=== PATIENT | female | born 1960 | race Caucasian/White ===

== ENCOUNTER → 2017-08-31 | Outpatient (CLI) | payer OTHER ==
--- NOTE | 2017-08-31 17:37 | WOMENS IMAGING REPORT ---
EXAM DESCRIPTION: BILAT DIAGNOSTIC MAMMO W/CAD; U/S BREAST UNILAT LIMITED COMPLETED DATE/TIME: 08/31/2017 8:31 am; 08/31/2017 9:44 am REASON FOR STUDY: MASTODYNIA; N64.4; LEFT BREAST N64.4; RT. BREAST N63.12 N64.4 MASTODYNIA N64.9 D ISORDER OF BREAST, UNSPECIFIED N63.12 UNSPECIFIED LUMP IN THE RIGHT BREAST, UPPER INNER ADAM COMPARISON: Multiple since 2010 TECHNIQUE: Standard craniocaudal and mediolateral oblique views of each breast recorded using digita l acquisition. Bilateral 90 mediolateral view whole breast images. Bilateral cone compression in the CC and MLO or ientations in the area of breast pain high in the 12 o'clock positions bilaterally. Bilateral breast ultrasound was performed in the area of breast pain. LIMITATIONS: None. FINDINGS: RIGHT BREAST MASSES: No suspicious masses. CALCIFICATIONS: No new or suspicious calcifications. ARCHITECTURAL DISTORTION: None. DEVELOPING DENSITY: None. ASYMMETRY: None noted. OTHER: No other significant findings. LEFT BREAST MASSES: No suspicious masses. CALCIFICATIONS: No new or suspicious calcifications. ARCHITECTURAL DISTORTION: None. DEVELOPING DENSITY: None. ASYMMETRY: None noted. OTHER: No other significant finding. Read with the assistance of CAD: .[facility] - R2 Cenova Version 1.3 .[facility] Imaging - R2 Cenova Version 1.3 .[facility] Imaging - R2 Cenova Version 2.4 .[facility] [place] - R2 Cenova Version 2.4 .[facility] - R2 Yarn Bleaching Machine Operator Version 9.2 Bilateral breast ultrasound: Ultrasound in the area of patient's pain was performed along the right and left breast 12 o'clock pos ition. No discrete cystic or solid lesions. No worrisome acoustic absorption. No focal findings. IMPRESSION: No mammographic or sonographic evidence for malignancy bilaterally BREAST DENSITY: b. There are scattered areas of fibroglandular density. BIRAD: 1 Negative. RECOMMENDATION: RECOMMENDED FOLLOW UP: Please continue yearly bilateral screening mammography in Aug. Consider bilateral screening tomosynthesis SPECIFIC INTERVENTION/IMAGING/CONSULTATION RECOMMENDED:No additional intervention/ imaging/consultati on needed at this time. COMMUNICATION:Patient notified by letter COMMENT: The patient has been notified of the results by letter per MQSA requirements. Additional no tification policies are in place for contacting patient with suspicious or incomplete findings. Quality ID #[id number]: The [employer] recommends an annual screening mammogram for women aged 40 years or over. This facility utilizes a reminder system to ensure that all patients receive reminder letters, and/or direct phone calls for appointments. This includes reminders for routine scr eening mammograms, diagnostic mammograms, or other Breast Imaging Interventions when appropriate. Th is patient will be placed in the appropriate reminder system. The [employer] (ACR) has developed recommendations for screening MRI of the breast s in certain patient populations, to be used in conjunction with mammography. Breast MRI surveillanc e may be appropriate for women with more than 20% lifetime risk of developing breast cancer as deter mined by genetic testing, significant family history of the disease, or history of mantle radiation f or Hodgkins Disease. ACR Practice Guidelines 2008. TECHNICAL DOCUMENTATION: FINDING NUMBER: (1) ASSESSMENT: (1) JOB ID: [id number] [employer]- All Rights Reserved
--- NOTE | 2017-08-31 17:37 | WOMENS IMAGING REPORT ---
EXAM DESCRIPTION: BILAT DIAGNOSTIC MAMMO W/CAD; U/S BREAST UNILAT LIMITED COMPLETED DATE/TIME: 08/31/2017 8:31 am; 08/31/2017 9:44 am REASON FOR STUDY: MASTODYNIA; N64.4; LEFT BREAST N64.4; RT. BREAST N63.12 N64.4 MASTODYNIA N64.9 D ISORDER OF BREAST, UNSPECIFIED N63.12 UNSPECIFIED LUMP IN THE RIGHT BREAST, UPPER INNER ADAM COMPARISON: Multiple since 2010 TECHNIQUE: Standard craniocaudal and mediolateral oblique views of each breast recorded using digita l acquisition. Bilateral 90 mediolateral view whole breast images. Bilateral cone compression in the CC and MLO or ientations in the area of breast pain high in the 12 o'clock positions bilaterally. Bilateral breast ultrasound was performed in the area of breast pain. LIMITATIONS: None. FINDINGS: RIGHT BREAST MASSES: No suspicious masses. CALCIFICATIONS: No new or suspicious calcifications. ARCHITECTURAL DISTORTION: None. DEVELOPING DENSITY: None. ASYMMETRY: None noted. OTHER: No other significant findings. LEFT BREAST MASSES: No suspicious masses. CALCIFICATIONS: No new or suspicious calcifications. ARCHITECTURAL DISTORTION: None. DEVELOPING DENSITY: None. ASYMMETRY: None noted. OTHER: No other significant finding. Read with the assistance of CAD: .[facility] - R2 Cenova Version 1.3 .[facility] Imaging - R2 Cenova Version 1.3 .[facility] Imaging - R2 Cenova Version 2.4 .[facility] [place] - R2 Cenova Version 2.4 .[facility] - R2 Marine Habitat Resource Specialist Version 9.2 Bilateral breast ultrasound: Ultrasound in the area of patient's pain was performed along the right and left breast 12 o'clock pos ition. No discrete cystic or solid lesions. No worrisome acoustic absorption. No focal findings. IMPRESSION: No mammographic or sonographic evidence for malignancy bilaterally BREAST DENSITY: b. There are scattered areas of fibroglandular density. BIRAD: 1 Negative. RECOMMENDATION: RECOMMENDED FOLLOW UP: Please continue yearly bilateral screening mammography in Aug. Consider bilateral screening tomosynthesis SPECIFIC INTERVENTION/IMAGING/CONSULTATION RECOMMENDED:No additional intervention/ imaging/consultati on needed at this time. COMMUNICATION:Patient notified by letter COMMENT: The patient has been notified of the results by letter per MQSA requirements. Additional no tification policies are in place for contacting patient with suspicious or incomplete findings. Quality ID #[id number]: The [employer] recommends an annual screening mammogram for women aged 40 years or over. This facility utilizes a reminder system to ensure that all patients receive reminder letters, and/or direct phone calls for appointments. This includes reminders for routine scr eening mammograms, diagnostic mammograms, or other Breast Imaging Interventions when appropriate. Th is patient will be placed in the appropriate reminder system. The [employer] (ACR) has developed recommendations for screening MRI of the breast s in certain patient populations, to be used in conjunction with mammography. Breast MRI surveillanc e may be appropriate for women with more than 20% lifetime risk of developing breast cancer as deter mined by genetic testing, significant family history of the disease, or history of mantle radiation f or Hodgkins Disease. ACR Practice Guidelines 2008. TECHNICAL DOCUMENTATION: FINDING NUMBER: (1) ASSESSMENT: (1) JOB ID: [id number] [employer]- All Rights Reserved
--- NOTE | 2017-08-31 17:37 | WOMENS IMAGING REPORT ---
EXAM DESCRIPTION: BILAT DIAGNOSTIC MAMMO W/CAD; U/S BREAST UNILAT LIMITED COMPLETED DATE/TIME: 08/31/2017 8:31 am; 08/31/2017 9:44 am REASON FOR STUDY: MASTODYNIA; N64.4; LEFT BREAST N64.4; RT. BREAST N63.12 N64.4 MASTODYNIA N64.9 D ISORDER OF BREAST, UNSPECIFIED N63.12 UNSPECIFIED LUMP IN THE RIGHT BREAST, UPPER INNER ADAM COMPARISON: Multiple since 2010 TECHNIQUE: Standard craniocaudal and mediolateral oblique views of each breast recorded using digita l acquisition. Bilateral 90 mediolateral view whole breast images. Bilateral cone compression in the CC and MLO or ientations in the area of breast pain high in the 12 o'clock positions bilaterally. Bilateral breast ultrasound was performed in the area of breast pain. LIMITATIONS: None. FINDINGS: RIGHT BREAST MASSES: No suspicious masses. CALCIFICATIONS: No new or suspicious calcifications. ARCHITECTURAL DISTORTION: None. DEVELOPING DENSITY: None. ASYMMETRY: None noted. OTHER: No other significant findings. LEFT BREAST MASSES: No suspicious masses. CALCIFICATIONS: No new or suspicious calcifications. ARCHITECTURAL DISTORTION: None. DEVELOPING DENSITY: None. ASYMMETRY: None noted. OTHER: No other significant finding. Read with the assistance of CAD: .[facility] - R2 Cenova Version 1.3 .[facility] - R2 Cenova Version 1.3 .[facility] Imaging - R2 Cenova Version 2.4 .[facility] [place] - R2 Cenova Version 2.4 .[facility] - R2 Inspector Subassemblies Version 9.2 Bilateral breast ultrasound: Ultrasound in the area of patient's pain was performed along the right and left breast 12 o'clock pos ition. No discrete cystic or solid lesions. No worrisome acoustic absorption. No focal findings. IMPRESSION: No mammographic or sonographic evidence for malignancy bilaterally BREAST DENSITY: b. There are scattered areas of fibroglandular density. BIRAD: 1 Negative. RECOMMENDATION: RECOMMENDED FOLLOW UP: Please continue yearly bilateral screening mammography in Aug. Consider bilateral screening tomosynthesis SPECIFIC INTERVENTION/IMAGING/CONSULTATION RECOMMENDED:No additional intervention/ imaging/consultati on needed at this time. COMMUNICATION:Patient notified by letter COMMENT: The patient has been notified of the results by letter per MQSA requirements. Additional no tification policies are in place for contacting patient with suspicious or incomplete findings. Quality ID #[id number]: The [employer] recommends an annual screening mammogram for women aged 40 years or over. This facility utilizes a reminder system to ensure that all patients receive reminder letters, and/or direct phone calls for appointments. This includes reminders for routine scr eening mammograms, diagnostic mammograms, or other Breast Imaging Interventions when appropriate. Th is patient will be placed in the appropriate reminder system. The [employer] (ACR) has developed recommendations for screening MRI of the breast s in certain patient populations, to be used in conjunction with mammography. Breast MRI surveillanc e may be appropriate for women with more than 20% lifetime risk of developing breast cancer as deter mined by genetic testing, significant family history of the disease, or history of mantle radiation f or Hodgkins Disease. ACR Practice Guidelines 2008. TECHNICAL DOCUMENTATION: FINDING NUMBER: (1) ASSESSMENT: (1) JOB ID: [id number] [employer]- All Rights Reserved
== END ==
LOC: WI 07:51
PROVIDERS: ATTEND Internal Medicine Hematology & Oncology
DX: N63.12 Unspecified lump in the right breast, upper inner quadrant (principal); N64.4 Mastodynia; N64.9 Disorder of breast, unspecified
CPT/HCPCS: 76642; 77066

== ENCOUNTER → 2018-09-25 | Outpatient (CLI) | payer OTHER ==
--- NOTE | 2018-09-25 16:59 | WOMENS IMAGING REPORT ---
EXAM DESCRIPTION: 3D SCREENING MAMMO BILAT COMPLETED DATE/TIME: 09/25/2018 11:29 am REASON FOR STUDY: ROUTINE BILATERAL SCREENING;Z12.31 Z12.31 ENCNTR SCREEN MAMMOGRAM FOR MALIGNANT N EOPLASM OF YARITZA COMPARISON: Multiple since 2010 TECHNIQUE: Standard craniocaudal and mediolateral oblique views of each breast recorded using digita l acquisition and breast tomosynthesis. LIMITATIONS: None. FINDINGS: No masses, calcifications or architectural distortion. No areas of suspicion. Read with the assistance of CAD. .[facility] - R2 Cenova Version 1.3 .[facility] Imaging - R2 Cenova Version 2.1 .[facility] Imaging - R2 Cenova Version 2.4 .[facility] [place] - R2 Cenova Version 2.4 .[facility] - R2 Dispatch Machine Runner Version 9.2 IMPRESSION: NORMAL MAMMOGRAM. BIRADS 1. BREAST DENSITY: b. There are scattered areas of fibroglandular density. BIRAD: 1 NEGATIVE RECOMMENDATION: ROUTINE SCREENING COMMENT: The patient has been notified of the results by letter per SA requirements. Additional no tification policies are in place for contacting patient with suspicious or incomplete findings. Quality ID #[id number]: The [employer] recommends an annual screening mammogram for women aged 40 years or over. This facility utilizes a reminder system to ensure that all patients receive reminder letters, and/or direct phone calls for appointments. This includes reminders for routine scr eening mammograms, diagnostic mammograms, or other Breast Imaging Interventions when appropriate. Th is patient will be placed in the appropriate reminder system. The [employer] (ACR) has developed recommendations for screening MRI of the breast s in certain patient populations, to be used in conjunction with mammography. Breast MRI surveillanc e may be appropriate for women with more than 20% lifetime risk of developing breast cancer as deter mined by genetic testing, significant family history of the disease, or history of mantle radiation f or Hodgkins Disease. ACR Practice Guidelines 2008. DBT Technology DBT is a type of tomographic mammography. With conventional mammography, overlapping breast tissue ma y make lesions difficult to detect, even with good compression. DBT uses an x-ray tube that rotates a round the breast, taking images at different angles. These images are then combined to create thin sl ices of the breast that the radiologist can view as a 3D reconstruction. The [employer] unit can perform full-field digital mammograms (2D imaging); or DBT (3D imaging); or both, in a combination mode that quickly performs both the mammogram and the tomosynthesis scan while the breast is still compressed. PQRS 6045F: Fluoroscopic imaging is not utilized for breast tomosynthesis. TECHNICAL DOCUMENTATION: FINDING NUMBER: (1) ASSESSMENT: (1) JOB ID: [id number] [employer]- All Rights Reserved Reading location - IP/workstation name: [email or web address]-
== END ==
LOC: WI 10:49
PROVIDERS: ATTEND Family Medicine
DX: Z12.31 Encounter for screening mammogram for malignant neoplasm of breast (principal)
CPT/HCPCS: 77063; 77067

== ENCOUNTER 2020-06-19 10:56 | Emergency (ER) | payer BC, OTHER ==
[2020-06-19] MEDS ORDERED: NORMAL SALINE 1000 ML 1,000 ML IV ONE (14:57)
--- NOTE | 2020-06-19 14:58 | ER Document Report ---
ED General - General Chief Complaint: Congestion Stated Complaint: SHORTNESS OF BREATH/NAUSEA/VOMITING/CONGESTION Time Seen by Provider: 06/19/20 14:31 Primary Care Provider: SLY SNYDER MD [Primary Care Provider] - Follow up as needed Notes: CHIEF COMPLAINT: Flulike symptoms HPI: 59-year-old female presenting with flulike symptoms over the last 4 days. States she had a positive Covid contact 5 days ago. Did not find out they were Covid positive until yesterday. Patient has had nausea without vomiting. She has had several episodes of diarrhea no abdominal pain. She has had some shortness of breath denies chest pain. Complains of mild headache. ROS: See HPI - all other systems were reviewed and are otherwise negative Constitutional: no fever Eyes: no drainage, no blurred vision ENT: no runny nose, no sore throat Cardiovascular: no chest pain Resp: Positive SOB, + cough GI: no vomiting, positive diarrhea, no abdominal pain, positive nausea : no dysuria Integumentary: no rash Allergy: no hives Musculoskeletal: no extremity pain or swelling, positive generalized myalgia Neurological: no numbness/tingling, no weakness, positive headache MEDICATIONS: I agree with the patient medications as charted by the RN. ALLERGIES: I agree with the allergies as charted by the RN. PAST MEDICAL HISTORY/PAST SURGICAL HISTORY: Reviewed and agree as charted by RN. SOCIAL HISTORY: Reviewed and agree as charted by RN. FAMILY HISTORY: No significant familial comorbid conditions directly related to patient complaint EXAM: Reviewed vital signs as charted by RN. CONSTITUTIONAL: Alert and oriented and responds appropriately to questions. Well-appearing; well-nourished HEAD: Normocephalic; atraumatic EYES: PERRL; Conjunctivae clear, sclerae non-icteric ENT: normal nose; no rhinorrhea; moist mucous membranes; pharynx without lesions noted, no uvula edema or deviation, no tonsillar hypertrophy, phonation normal NECK: Supple without meningismus; non-tender; no cervical lymphadenopathy, no masses CARD: RRR; no murmurs, no clicks, no rubs, no gallops; symmetric distal pulses RESP: Normal chest excursion without splinting or tachypnea; breath sounds clear and equal bilaterally; no wheezes, no rhonchi, no rales, pulse oximetry 97% on room air not hypoxic ABD/GI: Normal bowel sounds; non-distended; soft, non-tender, no rebound, no guarding; no palpable organomegaly or masses. BACK: The back appears normal and is non-tender to palpation, there is no CVA tenderness EXT: Normal ROM in all joints; non-tender to palpation; no cyanosis, no effusions, no edema SKIN: Normal color for age and race; warm; dry; good turgor; no acute lesions noted NEURO: Moves all extremities equally; Motor and sensory function intact PSYCH: The patient's mood and manner are appropriate. Grooming and personal hygiene are appropriate. MDM: 59-year-old female with flulike symptoms. Positive Covid exposure 5 days ago. Chest x-ray on my review does not show evidence of infiltrate or pneumonia. Will obtain Covid swab. Will symptomatically treat check baseline screening labs. She has absolutely no chest pain to suggest ACS. Does report mild shortness of breath with a very slight cough. TRAVEL OUTSIDE OF THE [place] IN LAST 30 DAYS: No - Related Data Allergies/Adverse Reactions: No Known Allergies Allergy (Unverified 02/07/14 13:12) Past Medical History - Social History Smoking Status: Unknown if Ever Smoked Family History: None - Past Medical History Cardiac Medical History: Denies: Hx Heart Attack, Hx Hypertension Pulmonary Medical History: Reports: Hx Asthma Neurological Medical History: Denies: Hx Cerebrovascular Accident, Hx Seizures GI Medical History: Reports: Hx Hiatal Hernia. Denies: Hx Hepatitis, Hx Ulcer Psychiatric Medical History: Reports: Hx Depression Infectious Medical History: Denies: Hx Hepatitis Past Surgical History: Reports: Hx Hysterectomy. Denies: Hx Mastectomy, Hx Open Heart Surgery, Hx Pacemaker - Immunizations Hx Diphtheria, Pertussis, Tetanus Vaccination: Yes Physical Exam - Vital signs Vitals: Temp Pulse Resp BP Pulse Ox 97.9 F 87 16 112/62 96 06/19/20 11:03 06/19/20 11:03 06/19/20 11:03 06/19/20 11:03 06/19/20 11:03 Course - Re-evaluation Re-evalutation: 06/19/20 16:13 EKG normal sinus rhythm with a ventricular rate of 77, WY 160, QT 392, QTc 444. Interpreted by emergency department physician. Borderline R wave progression in the anterior leads otherwise normal EKG. 06/19/20 17:20 Patient's lab work, urinalysis, chest x-ray, screening cardiac labs are all negative. Patient likely has a viral illness at this time, she is considered a person under investigation for COVID-19 will self quarantine at home. Return for worsening symptoms - Vital Signs Vital signs: Temp Pulse Resp BP Pulse Ox 97.9 F 87 16 112/62 96 06/19/20 11:03 06/19/20 11:03 06/19/20 11:03 06/19/20 11:03 06/19/20 11:03 - Laboratory Result Diagrams: 06/19/20 15:35 06/19/20 15:35 Laboratory results interpreted by me: 06/19/20 06/19/20 06/19/20 15:30 15:35 15:35 RBC 5.33 H Hgb 16.3 H Hct 48.0 H AST 54 H ALT 40 H Urine Glucose (UA) >=500 H Discharge - Discharge Clinical Impression: Shortness of breath, Nausea, Person under investigation for COVID-19 Diarrhea Qualifiers: Diarrhea type: unspecified type Qualified Code(s): R19.7 - Diarrhea, unspecified Condition: Stable Disposition: HOME, SELF-CARE Additional Instructions: You are considered a person under investigation for COVID-19 at this time self quarantine at home pending your test results which should occur in 2 to 5 days. You will receive notification from the hospital about your test results. Take Zofran for any recurrent nausea. Use the albuterol inhaler 2 puffs every 4 hours as needed for shortness of breath or cough. Return to the emergency department for worsening symptoms Prescriptions: Albuterol Sulfate [Proair HFA Inhalation Aerosol 8.5 gm MDI] 2 puff IH Q4H PRN #1 mdi PRN Reason: Ondansetron [Zofran Odt 4 mg Tablet] 1 - 2 tab PO Q4H PRN #15 tab.rapdis PRN Reason: For Nausea/Vomiting Referrals: SLY SNYDER MD [Primary Care Provider] - Follow up as needed
[2020-06-19] MEDS ORDERED: KETOROLAC TROMETHAMINE INJ/PF 30 MG/1 ML SDV IV ONE (15:05)
[2020-06-19] MEDS ORDERED: ONDANSETRON HCL INJ/PF 4 MG/2 ML SDV IV ONE (15:05)
--- NOTE | 2020-06-19 15:19 | RADIOLOGY REPORT (SQ) ---
EXAM DESCRIPTION: CHEST SINGLE VIEW IMAGES COMPLETED DATE/TIME: 06/19/2020 3:10 pm REASON FOR STUDY: sob COMPARISON: 2007 EXAM PARAMETERS: NUMBER OF VIEWS: One view. TECHNIQUE: Single frontal radiographic view of the chest acquired. RADIATION DOSE: NA LIMITATIONS: None. FINDINGS: LUNGS AND PLEURA: No opacities, masses or pneumothorax. No pleural effusion. MEDIASTINUM AND HILAR STRUCTURES: No masses. Contour normal. HEART AND VASCULAR STRUCTURES: Heart normal in size. Normal vasculature. BONES: No acute findings. HARDWARE: None in the chest. OTHER: No other significant finding. IMPRESSION: NO ACUTE RADIOGRAPHIC FINDING IN THE CHEST. TECHNICAL DOCUMENTATION: JOB ID: [id number] 2010 [employer]- All Rights Reserved Reading location - IP/workstation name: [email or web address]
[2020-06-19 15:52] LABS: ABSOLUTE LYMPHOCYTES (AUTO) 1.6 10^3/uL (0.5-4.7); ABSOLUTE MONOCYTES (AUTO) 0.4 10^3/uL (0.1-1.4); BASOPHILS % (AUTO) 0.4 % (0-2); HEMOGLOBIN 16.3 g/dL (12.0-15.5); LYMPHOCYTES % (AUTO) 39.3 % (13-45); MEAN CORPUSCULAR HEMOGLOBIN 30.6 pg (27.0-33.4); MEAN CORPUSCULAR HGB CONC 33.9 g/dL (32.0-36.0); MEAN CORPUSCULAR VOLUME 90 fl (80-97); MONOCYTES % (AUTO) 9.7 % (3-13); PLATELET COUNT 158 10^3/uL (150-450); RED BLOOD COUNT 5.33 10^6/uL (3.72-5.28); RED CELL DISTRIBUTION WIDTH 13.6 % (11.5-14.0); SEGMENTED NEUTROPHILS % (AUTO) 49.6 % (42-78); TOTAL CELLS COUNTED % (AUTO) 100 %; WHITE BLOOD COUNT 4.1 10^3/uL (4.0-10.5)
[2020-06-19 16:09] LABS: APPEARANCE,URINE SLIGHTLY-CLOUDY; BILIRUBIN,URINE NEGATIVE (NEGATIVE); COLOR,URINE YELLOW; GLUCOSE, URINE >=500 mg/dL (NEGATIVE); KETONES,URINE NEGATIVE (NEGATIVE); LEUKOCYTE ESTERASE,URINE NEGATIVE (NEGATIVE); NITRITE,URINE NEGATIVE (NEGATIVE); PROTEIN,URINE NEGATIVE (NEGATIVE); URINE SPECIFIC GRAVITY 1.021; UROBILINOGEN,URINE NEGATIVE mg/dL (<2.0)
[2020-06-19 16:10] LABS: ALBUMIN 4.2 g/dL (3.5-5.0); ALKALINE PHOSPHATASE 119 U/L (38-126); ANION GAP 9 (5-19); ASPARTATE AMINO TRANSFERASE 54 U/L (14-36); BILIRUBIN,DIRECT 0.2 mg/dL (0.0-0.4); BILIRUBIN,TOTAL 0.5 mg/dL (0.2-1.3); BLOOD UREA NITROGEN 14 mg/dL (7-20); CALCIUM 9.4 mg/dL (8.4-10.2); CARBON DIOXIDE 30 mmol/L (22-30); CHLORIDE 100 mmol/L (98-107); GLUCOSE 96 mg/dL (75-110); POTASSIUM 3.8 mmol/L (3.6-5.0); TOTAL PROTEIN 7.2 g/dL (6.3-8.2)
[2020-06-19 18:02] VITALS: BP 112/66
--- NOTE | 2020-06-20 00:37 | EKG REPORT ---
SEVERITY:- BORDERLINE ECG - SINUS RHYTHM LOW VOLTAGE THROUGHOUT BORDERLINE R WAVE PROGRESSION, ANTERIOR LEADS : Confirmed by: Parvez Buck 20-Jun-2020 00:36:36
--- OUTSIDE RECORDS SUMMARY | 2020-06-20 15:27 | XMS REPORT ---
:1960 Author Organization [facility] [place] [facility] [place] [address] [place] [id number] Care Team Providers Name Role Phone Unavailable Unavailable Unavailable Allergies, Adverse Reactions, Alerts This patient has no known allergies or adverse reactions. Medications Ordered Filled Start Stop Current Ordering Indication Dosage Frequency Signature Comments Components Medication Medication Date Date Medication? Clinician (SIG) Name Name estradiol 2 No estradiol mg tablet 2 mg Take 1 tablet tablet Take 1 every day tablet by oral every day route for by oral 30 days. route for 30 days. fluticasone No fluticason propionate e 50 propionate mcg/actuati 50 on nasal mcg/actuat spray,suspe ion nasal nsion spray,susp Inhale 2 ension sprays Inhale 2 every day sprays by nasal every day route. by nasal route. Levemir No Levemir FlexTouch FlexTouch U-100 U-100 Insulin 100 Insulin unit/mL (3 100 mL) unit/mL (3 subcutaneou mL) s pen subcutaneo us pen meloxicam No meloxicam 15 mg 15 mg tablet Take tablet 1 tablet Take 1 every day tablet by oral every day route. by oral route. modafinil No modafinil 200 mg 200 mg tablet Take tablet 1 tab by Take 1 tab mouth daily by mouth daily omega-3 No omega-3 acid ethyl acid ethyl esters 1 esters 1 gram gram capsule capsule Take 2 Take 2 capsules capsules twice a day twice a by oral day by route for oral route 30 days. for 30 days. Ozempic 1 No Ozempic 1 mg/dose (2 mg/dose (2 mg/1.5 mL) mg/1.5 mL) subcutaneou subcutaneo s pen us pen injector injector ProAir HFA No ProAir HFA 90 90 mcg/actuati mcg/actuat on aerosol ion inhaler aerosol Inhale 2 inhaler puffs as Inhale 2 needed by puffs as inhalation needed by route. inhalation route. Restasis No Restasis 0.05 % eye 0.05 % eye drops in a drops in a dropperette dropperett e simvastatin No simvastati 20 mg n 20 mg tablet Take tablet 1 tablet Take 1 every day tablet by oral every day route. by oral route. Spiriva No Spiriva with with HandiHaler HandiHaler 18 mcg and 18 mcg and inhalation inhalation capsules capsules Inhale 1 Inhale 1 capsule capsule every day every day by by inhalation inhalation route for route for 30 days. 30 days. Synthroid No Synthroid 150 mcg 150 mcg tablet Take tablet 1 tab by Take 1 tab mouth daily by mouth daily trazodone No trazodone 50 mg 50 mg tablet Take tablet 1 tab by Take 1 tab mouth daily by mouth daily Vitamin D2 No Vitamin D2 50,000 unit 50,000 capsule unit Take 1 cap capsule by mouth Take 1 cap once a week by mouth once a week Xigduo XR 5 No Xigduo XR mg-1,000 mg 5 mg-1,000 tablet,exte mg nded tablet,ext release ended Take 1 tab release by mouth Take 1 tab daily by mouth daily candesartan No candesarta 32 mg n 32 mg tablet 1/2 tablet 1/2 tablet by tablet by mouth daily mouth daily carisoprodo No carisoprod l 250 mg ol 250 mg tablet Take tablet 1 tablet Take 1 every day tablet by oral every day route at by oral bedtime. route at bedtime. duloxetine No duloxetine 60 mg 60 mg capsule,del capsule,de ayed layed release release Take 1 Take 1 capsule capsule every day every day by oral by oral route. route. esomeprazol No esomeprazo e magnesium le 40 mg magnesium capsule,del 40 mg ayed capsule,de release layed Take 1 release capsule Take 1 every day capsule by oral every day route. by oral route. Problems Condition Condition Condition Status Onset Resolution Last Treatin g Comments Name Details Category Date Date Treatment Clinician Date Hyperthyroi Hyperthyroi Problem Active dism dism Diabetes Diabetes Problem Active mellitus Mellitus Hypercholes Hypercholes Problem Active terolemia terolemia Depressive Depressive Problem Active disorder Disorder Chronic Chronic Problem Active obstructive Obstructive lung Lung disease Disease Gastroesoph Gastroesoph Problem Active ageal ageal reflux Reflux disease Disease Knee pain Knee Pain Problem Active Primary Primary Problem Active fibromyalgi Fibromyalgi a syndrome a Syndrome Foot pain Foot Pain Problem Active Metatarsal Metatarsal Problem Active bone Bone fracture Fracture Sprain of Sprain of Problem Active ankle grade Ankle Grade III III Procedures Procedure Date / Time Performed Performing Clinician Devic e Neck Surgery 2014-09-08 00:00:00 Colonoscopy 2013-08-08 00:00:00 Other 2011-08-08 00:00:00 Partial Hysterectomy 2004-08-08 00:00:00 Caesarean Section 1984-08-08 00:00:00 Tubal Ligation 1984-08-08 00:00:00 Cholecystectomy 1977-08-08 00:00:00 Results This patient has no known results. Assessments Condition Name Status Diagnosis Date Treating Clinici an Hardeepulitis Active 2019-04-21 11:48:30 Encounters Start End Encounter Admission Attending Care Care Encounter Date/Time Date/Time Type Type Clinicians Facility Department ID 2019-04-03 2019-04-03 John Oconnellt [id number] 00:00:00 00:00:00 [facility] [id number] [facility] MD: [id number] [facility], [address], [place] [address] , Ph. Immunizations Ordered Immunization Filled Immunization Date Status Commen ts Refusal Reason Name Name influenza, 2018-04-08 Completed injectable, 00:00:00 quadrivalent Pneumococcal 2013-08-08 Completed Conjugate, 00:00:00 unspecified formulation Social History Smoking Status Start Date Stop Date Heavy Tobacco Smoker Vital Signs Vital Name Observation Time Observation Value Comments BP Diastolic 2019-04-03 00:00:00 68 mm[Hg] Height 2019-04-03 00:00:00 65 [in_i] BMI (Body Mass Index) 2019-04-03 00:00:00 27.5 kg/m2 BP Systolic 2019-04-03 00:00:00 108 mm[Hg] Body Weight 2019-04-03 00:00:00 165 [lb_av] Hospital Discharge Instructions 1. Panniculitis Discussion Note: None recorded. Patient educational handouts: No information available.
== END 2020-06-19 18:02 | disposition home or self-care (01) ==
LOC: ER 10:56
DX: U07.1 COVID-19 (principal); R06.02 Shortness of breath; R11.0 Nausea; R19.7 Diarrhea, unspecified; R05 Cough; J45.909 Unspecified asthma, uncomplicated
CPT/HCPCS: 93005; 99285; 96361; 96374; 96375; 36415; 85025; 80053; 81001; 84484; 71045; 93010; U0003; J1885; J2405; J7030; C9803; 87635